=== PATIENT | male | born 1975 | race Two or more races ===

== ENCOUNTER 2023-11-03 17:19 | Emergency (ER) | payer MEDICAID, OTHER ==
[~2023-11-03] VITALS: Ht 180.3 cm; Wt 120.0 kg
[2023-11-03] MEDS ORDERED: ONDANSETRON HCL 4 MG/2 ML VIAL IM ONE (20:15)
[2023-11-03] MEDS ORDERED: ACETAMINOPHEN 500 MG TAB PO ONE (20:15)
[2023-11-03 21:01] LABS: Basophils # (auto) 0 10 ^3/uL (0-0.2); Eosinophils # (auto) 0 10 ^3/uL (0-0.8); Hemoglobin 14.4 g/dL (13.5-17.5); Lymphocytes # (auto) 0.7 10 ^3/uL (0.4-5.4); Mean Corpuscular Volume 71.8 fL (80.0-100.0); Nucleated Red Blood Cells % 0.1 %; Red Cell Distribution Width 14.4 % (11.8-14.3)
[2023-11-03 21:02] LABS: Alanine Aminotransferase 16 U/L (7-40); Albumin 4.6 g/dL (3.2-4.8); Alkaline Phosphatase 61 U/L (46-116); Anion Gap 8 (5-15); Aspartate Aminotransferase 41 U/L (13-40); BUN/Creatinine Ratio 12.3 (10.0-20.0); Basophils % (auto) 0.3 % (0.0-2.0); Bilirubin, Total 1.1 mg/dL (0.2-1.0); Blood Urea Nitrogen 14 mg/dL (9-23); Calcium 9.1 mg/dL (8.7-10.4); Carbon Dioxide 25 mmol/L (20-30); Chloride 105 mmol/L (98-107); Glucose 106 mg/dL (74-106); Hematocrit 45.4 % (41.0-53.0); Lymphocytes % (auto) 6.6 % (10.0-50.0); Magnesium 1.7 mg/dL (1.6-2.6); Mean Corpuscular Hemoglobin 22.8 pg (28.0-32.0); Mean Corpuscular Hgb Conc. 31.8 g/dL (32.0-36.0); Monocytes # (auto) 0.9 10 ^3/uL (0-1.3); Monocytes % (auto) 9.2 % (0.0-12.0); Neutrophils # (auto) 8.4 10 ^3/uL (1.6-8.6); Neutrophils % (auto) 83.9 % (37.0-80.0); Red Blood Cells 6.32 10^6/uL (4.5-5.90); Sodium 138 mmol/L (136-145); Total Protein 7.1 g/dL (5.7-8.2)
[2023-11-03 21:19] LABS: INR 1.06 (0.9-1.15); Partial Thromboplastin Time 32.2 SEC (24.5-34.5); Prothrombin Time 11.1 sec (9.3-11.8)
[2023-11-04 00:20] LABS: COVID19 ANTIGEN SOFIA FIA NEGATIVE (NEGATIVE)
[2023-11-04 00:28] LABS: Rapid Influenza A Negative (Negative); Rapid Influenza B Positive (Negative)
[2023-11-04] MEDS ORDERED: IBUP-1455 PO (01:03)
[2023-11-04] MEDS ORDERED: ACET500T58 PO (01:03)
[2023-11-04] MEDS ORDERED: ZOFR4T PO (01:03)
[2023-11-04 01:17] LABS: Urine Bacteria NONE SEEN /hpf (None Seen); Urine Blood Negative /uL (Negative); Urine Clarity Clear (Clear); Urine Color Yellow (Yellow); Urine Mucus FEW (None Seen); Urine Protein, UAD 1+ (Negative); Urine Specific Gravity 1.022 (1.001-1.035); Urine Urobilinogen Normal (Negative); Urine WBC 5 /hpf (0 - 3); Urine pH 5.5 (5.0-8.0)
[2023-11-04 03:46] VITALS: BP 120/84; TEMP 98; O2SAT 99
[2023-11-04 03:48] VITALS: PULSE 69; RESP 18
== END 2023-11-04 01:03 | disposition home or self-care (01) ==
LOC: ER 17:19
DX: J10.1 Influenza due to other identified influenza virus with other respiratory manifestations (principal); Z20.822 Contact with and (suspected) exposure to COVID-19
CPT/HCPCS: 36415; 71045; 80053; 80320; 81001; 82962; 83735; 83880; 84484; 85025; 85610; 85730; 87426; 87804; 93005; 96372; 99285; J2405

== ENCOUNTER 2024-12-17 11:34 | Emergency (ER) | payer MEDICAID ==
[~2024-12-17] VITALS: Ht 180.3 cm; Wt 100.0 kg
[~2024-12-17 11:34] MED LIST: ACET500T58 PO; IBUP-1455 PO; ZOFR4T PO
[2024-12-17 13:15] VITALS: BP 145/91; PULSE 93; RESP 18; TEMP 98.8; O2SAT 97
[2024-12-17] MEDS: METHOCARBAMOL 500 MG TAB PO ONE (13:18)
[2024-12-17] MEDS: HYDROcodone-ACET 5/325MG TAB PO ONE (13:18)
[2024-12-17] MEDS: KETOROLAC TROMETH 60MG/2ML VIAL IM ONE (13:19)
--- NOTE | 2024-12-17 13:33 | ED.PDOC ---
Musculoskeletal HPI Comments 49 y.o male presents to the ED for an evaluation of worsening right knee pain. Patient reports chronic history of right knee pain, recently had an MRI done showing possible patellar tendon/left femoral condyle friction syndrome, grade 2 MCL sprain/tear, ACL degenerative change, and lateral meniscus disease. He is awaiting to see micro computer specialist but states last night while getting out of his car, his knee became more unstable blew out,"meeting that his knee gave out and became more painful. Denies any direct trauma, but states he feels like t here is a broken bone. Patient describes knee as "loose" and has had even more limited ROM. Patient is ambulatory with a cane but states he can only ambulate short distance before pain worsens. Patient denies any recent falls, injuries, trauma. Additional medical history of asthma, chronic back pain, carpal tunnel syndrome, sickle cell trait, Pre DM Chief Complaint: Lower Extremity Time Seen by MD: 12:55 Primary Care Provider: GIRISH Reviewed Notes: Nurses Notes, Medications, Allergies Allergies: Coded Allergies: NO KNOWN ALLERGIES (Unverified , 11/03/23) Home Meds Active Scripts Acetaminophen (Acetaminophen) 500 Mg Tab, 500 MG PO Q4HP PRN, #30 TAB Prov:RAMIREZ NASCIMENTO PAC 11/04/23 Ibuprofen Micronized (Ibuprofen) 800 Mg Tab, 800 MG PO Q8HP PRN, #20 TAB Prov:RAMIREZ NASCIMENTO PAC 11/04/23 Ondansetron Odt 4MG Tab (ZOFRAN PO) 4 Mg Tb, 4 MG PO Q6HP PRN, #30 TAB ODT TAB-DISSOLVE IN MOUTH, THEN SWALLOW Prov:RAMIREZ NASCIMENTO PAC 11/04/23 Information Source: Patient Mode of Arrival: Ambulatory Location: Right Extremity Location: Knee Timing: Hours Severity: Moderate Able to Move Extremity: Yes Bear Weight: Limited Pain: Moderate Mechanism: None Circumstances: Other Onset of Symptoms: Spontaneous Symptoms: Pain DVT Risk Factors: NONE Associated signs and symptoms: Knee pain Past Medical History Past Medical History (Other): chronic knee pain, chronic back pain, carpal tunnel syndrome, sickel cell trait, Pre DM Surgical History: Denies all surgeries Family History Family History: Reviewed,noncontributory to illness, No family hx of Cancer, No family hx of DM, No family hx of Heart yarelis, No family hx of HTN, No family hx ofKidney yarelis, No family hx of Liver yarelis, No family hx of Lung yarelis, No family hx of Stroke Social History Smoker: Non-Smoker Alcohol: Denies ETOH Use Drugs: Denies Drug Use Lives In: Home Constitutional: denies: chills, diaphoresis, fatigue, fever, malaise, sweats, weakness, others EENTM: denies: blurred vision, double vision, ear bleeding, ear discharge, ear drainage, ear pain, ear ringing, eye pain, eye redness, hearing loss, mouth pain, mouth swelling, nasal discharge, nose bleeding, nose congestion, nose pain, photophobia, tearing, throat pain, throat swelling, voice changes, others Respiratory: denies: cough, hemoptysis, orthopnea, SOB at rest, shortness of breath, SOB with excertion, stridor, wheezing, others Cardiovascular: denies: chest pain, dizzy spells, diaphoresis, Dyspnea on exertion, edema, irregular heart beat, left arm pain, lightheadedness, palpitations, PND, syncope, others Gastrointestinal: denies: abdomen distended, abdominal pain, blood streaked bowels, constipated, diarrhea, dysphagia, difficulty swallowing, hematemesis, melena, nausea, poor appetite, poor fluid intake, rectal bleeding, rectal pain, vomiting, others Genitourinary: denies: burning, dysuria, flank pain, frequency, hematuria, incontinence, penile discharge, penile sore, pain, testicle pain, testicle swelling, urgency, others Neurological: denies: dizziness, fainting, headache, left sided numbness, left sided weakness, numbness, paresthesia, pre-existing deficit, right sided numbness, right sided weakness, seizure, speech problems, tingling, tremors, weakness, others Musculoskeletal: reports: others (right knee pain ); denies: back pain, gout, joint pain, joint swelling, muscle pain, muscle stiffness, neck pain Integumetry: denies: bruises, change in color, change in hair/nails, dryness, laceration, lesions, lumps, rash, wounds, others Allergic/Immunocompromised: denies: Difficulty Healing, Frequent Infections, Hives, Itching, others Hematologic/Lymphatic: denies: anemia, blood clots, easy bleeding, easy b ruising, swollen glands, others Endocrine: denies: excessive hunger, excessive sweating, excessive thirst, excessive urination, flushing, intolerance to cold, intolerance to heat, unexplained weight gain, unexplained weight loss, others Psychiatric: denies: anxiety, bipolar disorder, depression, hopeless, panic disorder, schizophrenia, sleepless, suicidal, others All Other Systems: Reviewed and Negative Physical Exam General Appearance: No Apparent Distress HEENT: Other (Pupils symmetric, no facial asymmetry) Neck: Full Range of Motion, Non-Tender, Normal Inspection, Supple Respiratory: Lungs Clear, No Accessory Muscle Use, No Respiratory Distress, Normal Breath Sounds Cardiovascular: No JVD, Regular Rate/Rhythm Breast Exam: Deferred Gastrointestinal: Non Tender, Soft Genitalia: Deferred Pelvic: Deferred Rectal: Deferred Extremities: Normal range of motion, Other (Right knee diffuse soft tissue tenderness and mild soft tissue swelling. Right calf tightness/tenderness. Unable to tolerate anterior/posterior drawer and varus/valgus stability testing due to pain.) Neurologic: Abnormal Gait (Antalgic gait using cane), Alert (Oriented x4), Other (Ambulatory with antalgic gait using cane, no gross focal deficit) Cerebellar Function: NOT DONE Reflexes: NOT DONE Skin: Dry, Normal Color, Warm Lymphatic: NOT DONE Was a procedure done? Was a procedure done?: Yes Sedation Sedation?: No Other Procedure Procedure Right knee immobilizer splint placement Indication Right knee ligamentous injury Success A right knee immobilizer splint was applied. The right lower extremity was neurovascularly intact after the splint was applied. Patient was provided with crutches and crutch training. Informed consent obtained: Yes Differential Diagnosis EXT Differential Diagnosis: Deep Vein Thrombosis, Fracture, Sprain, Dislocation, DJD, Strain, Other (Other soft tissue injury) X-Ray, Labs, Meds, VS Vital Signs Date Time Temp Pulse Resp B/P (MAP) Pulse Ox O2 Delivery O2 Flow Rate FiO2 12/17/24 13:15 98.8 93 18 145/91 (109) 97 98.8 12/17/24 11:47 98.8 93 18 145/91 (109) 97 Current Medications Medications (Trade) Dose Ordered Sig/Monica Route Start Time Stop Time Status Last Admin Ketorolac Tromethamine (Toradol Injection) 60 mg ONCE ONCE IM 12/17/24 13:15 12/17/24 13:16 DC 12/17/24 13:19 Acetaminophen/ Hydrocodone Bitart (Hig[place]um 5/325MG Tab) 2 tab ONCE ONCE PO 12/17/24 13:15 12/17/24 13:16 DC 12/17/24 13:18 Methocarbamol (Robaxin) 1,000 mg ONCE ONCE PO 12/17/24 13:15 12/17/24 13:16 DC 12/17/24 13:18 [place] [address] Ph: [phone] DIAGNOSTIC IMAGING Diagnostic Imaging Report : [id number] Signed PATIENT: CARLOS CHUNG ACCT: [id number] UNIT: [id number] : 1975 LOC: ER ROOM / BED: / AGE / SEX: 49 / M ADM STATUS: REG ER SERVICE 1309 ORDERING PHYSICIAN: HUI BARRETO MD PROCEDURE(s): RKN3 - R KNEE 3V XRAY REASON: trauma ORDER NUMBER(s): [id number], ACCESSION NUMBER(s): [id number] CLINICAL INFORMATION: 49 years old, Male; trauma. TECHNIQUE: 3 views of the right knee were obtained. COMPARISON: None FINDINGS: No acute fracture or dislocation. Mild joint space narrowing in the medial compartment. Mild to moderate prepatellar and superficial infrapatellar soft tissue swelling. Moderate joint effusion. IMPRESSION: 1. No evidence of acute bony abnormality. 2. Moderate joint effusion and jceu-kx-wkhlbirj prepatellar and superficial infrapatellar soft tissue swelling. ATED BY: KOREY CAAL DO DICTATED DATE/TIME: 12/17/24 1351 SIGNED BY: KOREY CAAL DO SIGNED DATE/TIME: 12/17/24 3687 CC: [address] [id number] Ph: [phone] DIAGNOSTIC IMAGING Diagnostic Imaging Report : [id number] Signed PATIENT: CARLOS CHUNG ACCT: [id number] UNIT: [id number] : 1975 LOC: ER ROOM / BED: / AGE / SEX: 49 / M ADM STATUS: REG ER SERVICE 1309 ORDERING PHYSICIAN: HUI BARRETO MD PROCEDURE(s): RLDVT - RT Lower DVT REASON: R calf pain/tightness ORDER NUMBER(s): [id number], ACCESSION NUMBER(s): [id number] Venous Doppler right lower extremity INDICATION: R calf pain/tightness TECHNIQUE: Duplex venous sonography was performed with real-time and flow sensitive images submitted for evaluation. FINDINGS: Normal phasic venous flow. Veins are fully compressible. No filling defects. IMPRESSION: 1. No evidence of deep vein thrombosis. ATED BY: EMA NEVILLE MD DICTATED DATE/TIME: 12/17/241348 SIGNED BY: EMA NEVILLE MD SIGNED DATE/TIME: 12/17/241348 CC: X-Ray, Labs, Meds, VS Comment 49-year-old male with history of prediabetes, sick cell trait, asthma and recent right knee MCL sprain/tear and other knee soft tissue injuries complaining of worsening right knee pain and instability. Vitals remarkable for BP 145/91 Exam remarkable for right knee diffuse soft tissue tenderness and mild soft tissue swelling, with right calf soft tissue tenderness and swelling. Unable to tolerate stability testing. Right knee x-rays: IMPRESSION: 1. No evidence of acute bony abnormality. 2. Moderate joint effusion and [id number]-[id number] prepatellar and superficial infrapatellar soft tissue swelling. Right lower extremity ultrasound negative for DVT Patient treated with the following in the ED: Toradol 60 mg IM, Higganum 5/325 mg two tabs p.o., methocarbamol 1 g p.o. A right knee immobilizer splint was applied. The right lower extremity was neurovascularly intact after splinting. Patient was provided with crutches and crutch training. On re-evaluation the patient stated pain was improved. Vitals were stable, right lower extremity was neurovascularly intact. Patient was advised regarding workup findings, my impression, treatment plan and follow up recommendations, s pecifically to follow up with the orthopedist once authorization is obtained for possible repeat MRI and re-evaluation. Rx Higganum, ibuprofen, Robaxin Time of 1ST Reevaluation: 13:29 Reevaluation 1ST: Unchanged Time of 2ND Reevaluation: 15:53 Reevaluation 2ND: Improved Patient Education/Counseling: Diagnosis, Treatment, Prognosis Family Education/Counseling: Diagnosis, Treatment, Prognosis Departure 1 Departure Time of Disposition: 15:53 Impression: Primary Impression: Right knee sprain Qualified Codes: S83.91XA - Sprain of unspecified site of right knee, initial encounter Additional Impression: Effusion, right knee Disposition: HOME / SELF CARE / HOMELESS Condition: Stable Additional Instructions: Your x-rays did not show any broken bones or dislocation. There was some fluid around the joint, which could indicate a soft tissue injury which is not seen on x-ray. Please see the report below. Your ultrasound did not show a blood clot. I have prescribed pain medications and muscle relaxers. Follow up with your orthopedist as soon as possible. Return to ER for uncontrolled pain or worsening symptoms. e-Prescriptions Methocarbamol (Methocarbamol) 500 Mg Tab 1000 MG PO Q8HP PRN, #30 TAB prn muscle spasm Prov: HUI BARRETO MD 12/17/24 Ibuprofen Micronized (Ibuprofen) 800 Mg Tab 800 MG PO Q8HP PRN, #30 TAB prn pain, take with food Prov: HUI BARRETO MD 12/17/24 Hydrocodone-Acetaminophen (Hydrocodone Bitartrate/AC 5-325 mg) 1 Tab Tab 1 TAB PO Q6HP PRN, #20 TAB prn breakthrough pain Prov: HUI BARRETO MD 12/17/24 Discharged With: Spouse Critical Care Note Critical Care Time?: No Stability Stability form required: No I personally scribed for HUI BARRETO MD ([email or web address]) on 12/17/24 at 13:33. Electronically submitted by Jessica Contreras ([facility]). I personally scribed for HUI BARREOT MD ([email or web address]) on 12/17/24 at 14:51. Electronically submitted by Jessica Contreras ([facility]). HUI BARRETO MD Dec 17, 2024 13:33
--- NOTE | 2024-12-17 13:51 | DVH ---
Venous Doppler right lower extremity INDICATION: R calf pain/tightness TECHNIQUE: Duplex venous sonography was performed with real-time and flow sensitive images submitted for evaluation. FINDINGS: Normal phasic venous flow. Veins are fully compressible. No filling defects. IMPRESSION: 1. No evidence of deep vein thrombosis.
--- NOTE | 2024-12-17 13:56 | DVH ---
CLINICAL INFORMATION: 49 years old, Male; trauma. TECHNIQUE: 3 views of the right knee were obtained. COMPARISON: None FINDINGS: No acute fracture or dislocation. Mild joint space narrowing in the medial compartment. Mil d to moderate prepatellar and superficial infrapatellar soft tissue swelling. Moderate joint effusion . IMPRESSION: 1. No evidence of acute bony abnormality. 2. Moderate joint effusion and xetb-jy-zypivlgc prepatellar and superficial infrapatellar soft tissue swelling.
[2024-12-17] MEDS ORDERED: METH-1181 PO (15:58)
[2024-12-17] MEDS ORDERED: IBUP-1455 PO (15:58)
[2024-12-17] MEDS ORDERED: HYDR-4902 PO (15:58)
== END 2024-12-17 16:06 | disposition home or self-care (01) ==
LOC: ER 11:34
DX: S83.91XA Sprain of unspecified site of right knee, initial encounter (principal); G89.29 Other chronic pain; M54.9 Dorsalgia, unspecified; J45.909 Unspecified asthma, uncomplicated; Z79.899 Other long term (current) drug therapy; X58.XXXA Exposure to other specified factors, initial encounter; Y93.89 Activity, other specified; Y92.89 Other specified places as the place of occurrence of the external cause; Y99.8 Other external cause status
CPT/HCPCS: 29505; 73562; 93971; 96372; 99285; J1885

== ENCOUNTER 2025-06-11 10:26 | Day surgery (SDC) | payer MEDICAID ==
[~2025-06-11] VITALS: Ht 180.3 cm; Wt 99.8 kg
[~2025-06-11 10:26] MED LIST changes: +HYDR-4902 PO; +METH-1181 PO
[2025-06-11] MEDS ORDERED: ceFAZolin 2 GM/D5W50ml 50 ML IV ONE (10:42)
[2025-06-11] MEDS ORDERED: HYDROmorphone HCL 2 MG/ML VL/or syr ONE ×2 (11:36→14:18)
[2025-06-11] MEDS ORDERED: fentaNYL CITRATE 100 MCG/2 ML VL ONE ×2 (11:36→12:44)
[2025-06-11] MEDS ORDERED: PROPOFOL 10 MG/ML 20 ML IV ONE (11:36)
[2025-06-11] MEDS ORDERED: ONDANSETRON HCL 4 MG/2 ML VIAL ONE (12:18)
[2025-06-11 12:56] VITALS: PULSE 77; RESP 11; O2SAT 92
[2025-06-11] MEDS: BACITRACIN TOP OINT 1 UD PKG TOP ONE (13:14)
[2025-06-11] MEDS ORDERED: ROPIVACAINE 0.5% (5MG/ML) 20ML AMPULE IJ ONE (13:35)
[2025-06-11] MEDS: BUPIVACAINE 0.25% INJ 50ML VIAL ONE (13:40)
[2025-06-11 13:56] VITALS: PULSE 77; RESP 11; TEMP 97.3; O2SAT 92
--- NOTE | 2025-06-11 14:02 | DVHOP2 ---
Operative Report - 2 Report Details Date: 06/11/25 Preop Diagnosis: Right knee anterior cruciate ligament tear, possible medial collateral ligament tear Postop Diagnosis: Right knee anterior cruciate ligament tear, healed medial collateral ligament, partial medial meniscus anterior horn tear Surgeon: Jalen Petty MD Systems Support Specialist: Rama Rocha Physician Systems Support Specialist Anesthesiologist: Dr Justin Anesthesia: General, Regional Implant: Arthrex adjustable loop button x2, InternalBrace x1 Consent: The patient was informed of the risks and benefits of the procedure. These include but are not limited to complications of anesthesia, postoperative infection, incomplete relief of symptoms, recurrence of symptoms, damage to blood vessels, nerves and tendons, deep venous thrombosis, pulmonary embolism and possible need for repeat surgery in the future. Complications: None Estimated Blood Loss: Less than 10 mL Indications for Surgery: The patient is a 49-year-old male who presented to the clinic with a history of right knee pain and instability. Clinical and radiological evaluation demonstrated partial ACL and MCL tears. Initially nonoperative management was discussed and initiated with conservative management such as physical therapy and a brace. However he continued to have instability. Benefits, risks and treatment alternatives of surgery were discussed. Surgery in the form of ACL reconstruction, possible MCL reconstruction, possible medial or lateral meniscus repair versus meniscectomy was discussed with him. Surgical complications including neurovascular injury, infection, arthrofibrosis, loss of limb or life were discussed. He decided to proceed with the surgical option Name of Procedure Performed Right knee arthroscopy ACL reconstruction using tibialis posterior allograft, partial medial meniscectomy Procedure Details Procedure Details: Procedure Details: The patient was identified in the preoperative holding area and the surgical site was marked. The consent was verified. The patient was brought into the operating room and placed supine on the operating table. General anesthesia was administered. Intravenous antibiotics were given. The extremity was prepped and draped in the usual sterile manner. All the bony prominences were appropriately padded. The extremity was examined under anesthesia and was found to have positive anterior drawer and Jefferson test with no endpoint. Pivot shift test was also positive. Stress to valgus stress test was negative. Good endpoint was noted. C-arm was brought in and x-rays were obtained with valgus stress and no opening of the medial joint space was noted indicative of healed MCL tear. The extremity was prepped and draped in the usual sterile manner. A timeout was called to confirm the identity of patient, the nature of surgery, the availability of implants and x-rays and allergies to medications. Based on exam and MRI findings, an allograft was opened at the back table. This was a tibialis anterior allograft with a folded diameter of 10 mm. This was prepared with help of FiberWire stitches on both ends. This was placed on the Graftmaster under tension after mounting it on an Ultrabutton. Bacitracin ointment was applied. A standard anterior portal established. A 30 degree scope was inserted a standard anteromedial portal established, a probe was inserted and the findings are as follows 1. Near complete ACL tear at the footprint 2. Intact medial femoral condyle cartilage 3. Medial meniscus tear, anterior horn, partial 4. Normal lateral meniscus 5. No loose bodies 6. Normal PCL 7. Negative drive-through sign on the medial side with no significant opening up of the joint space. This was again indicative of healed MCL with patent MCL. Meniscus: The medial meniscus was probed. There was some tear noted in the anterior horn. The attachment was stable. The edges were smoothened. Preparation of intercondylar notch: The ACL tear with a high-grade tear at the footprint. Almost 80% of the ACL was torn. The remaining ACL remnant was removed with the help of a shaver. A notchplasty was performed with a bur. 3 to 4 mm of bone was removed to make way for the new graft. The footprint of the ACL site was also debrided. Preparation of femoral tunnel: An outside in jig was inserted. This was positioned at the center of the ACL footprint. A guidewire was inserted. Next a reamer was inserted. This was a retroreamer from [employer]. A 20 mm tunnel was drilled. The scope was inserted into the medial portal for this step and the integrity of the lateral and posterior wall was ensured. Preparation of tibial tunnel: A tibial tunnel jig was inserted. A guidepin was inserted at the center of the ACL footprint remnant. This was approximately 7 mm anterior to the PCL fibers. Next a guide pin was inserted. Next a 10.5 mm reamer was inserted. Next, a loop was inserted from the femoral side and retrieved through the tibial tunnel. Passage of graft and fixation: The graft was now brought into the operative field and the sutures were passed from the tibial side to the femoral side. The button was visualized entering the femoral tunnel with the scope on the medial border. The button was now flipped. The position was ensured by tugging on the tibial side and by cycling the knee. This was a very secure fixation. Next the adjustable loop was pulled from the lateral side and the graft was inserted into the femoral tunnel. The graft was marked at 20 mm with 0 Vicryl and that was completely inside the tunnel ensuring at least 20 mm of the tunnel inside the graft. The tibial side was now fixed with the help of a adjustable loop button as well with the knee in 10 degrees of flexion, posterior drawer force and moderate tension on the graft. Excellent fixation was noted. The internal brace was tied over the button. The scope was inserted inside the knee and the tension on the graft was noted to be excellent. C-arm images were obtained throughout the case to ensure that the buttons were flipped and the hardware was in place. Excellent positioning of the hardware and the tunnels was noted. Irrigation was given. The skin incisions were closed with 2-0 Vicryl and 3-0 Monocryl. Sterile dressing was applied. A hinged range of motion brace set at -10 to 90 degrees was applied. Disposition: Good, the patient was extubated and taken to recovery without any complication Plan: Weightbearing as tolerated. To follow-up in 1 to 2 weeks in the clinic. May range his knee as per brace settings. Condition Good Disposition Home JALEN PETTY MD Jun 11, 2025 14:02
[2025-06-11 14:15] VITALS: PULSE 77; RESP 12; O2SAT 95
[2025-06-11] MEDS ORDERED: MEPERIDINE HCL (25 MG/ML) 1ML VIAL IV PRN (14:15)
[2025-06-11] MEDS ORDERED: ONDANSETRON HCL 4 MG/2 ML VIAL IV ONE (14:15)
[2025-06-11] MEDS: HYDROmorphone HCL 2 MG/ML VL/or syr IV PRN (14:18)
[2025-06-11] MEDS: hydrALAZINE HCL 20 MG/ML VL IV PRN (14:39)
--- NOTE | 2025-06-11 14:43 | DVH ---
FLUOROSCOPY TIME: 14 seconds TECHNIQUE: Intraoperative radiographs of the left knee were obtained. COMPARISON: XY CHEST PORTABLE on DOS: 11/03/23 FINDINGS: Refer to intraoperative report for further evaluation. IMPRESSION: Refer to intraoperative report for further evaluation.
[2025-06-11] MEDS: ACETAMINOPHEN IV 1000 MG/100ML (10MG/ML) IV PRN (15:06)
[2025-06-11] MEDS: METOCLOPRAMIDE HCL 5MG/ml INJ 2ml VIAL IV ONE (15:37)
[2025-06-11 15:56] VITALS: BP 156/103; PULSE 69; RESP 13; O2SAT 95
== END 2025-06-11 16:06 | disposition home or self-care (01) ==
LOC: SUR 10:26
PROVIDERS: ATTEND Orthopaedic Surgery Sports Medicine
DX: S83.511A Sprain of anterior cruciate ligament of right knee, initial encounter (principal); S83.241A Other tear of medial meniscus, current injury, right knee, initial encounter; E78.5 Hyperlipidemia, unspecified; J45.909 Unspecified asthma, uncomplicated; X58.XXXA Exposure to other specified factors, initial encounter; Y93.89 Activity, other specified; Y92.89 Other specified places as the place of occurrence of the external cause; Y99.8 Other external cause status; Z98.890 Other specified postprocedural states
CPT/HCPCS: 29881; 29888; 73560; 76000; C1713; C1762; J0360; J0690; J1100; J1171; J2405; J2704; J2765; J2795; J3010; J0131; J3490